=== PATIENT | male | born 1985 | race African-American/Black ===

== ENCOUNTER 2019-08-29 00:50 | Emergency (ER) | payer MEDICAID, OTHER ==
[~2019-08-29] VITALS: Ht 180.3 cm; Wt 65.8 kg
[~2019-08-29 00:50] MED LIST: CIPROFLOXACIN500 M2 ORAL; DOXYCYCLINE MO100 MG ORAL; PHENAZOPYRIDIN100 MG ORAL
--- NOTE | 2019-08-29 00:59 | NUR ---
ED Nurse Note: pt presents to ED with a lac to his R hand. THe lac is located in his palm below the ring finger. pt states that he was holding a can of queso when he tripped and the jar broke, lacerating his hand. pt reports he was drinking a little bit of alcohol. the lac is about 2 cm long and actively bleeding.
[2019-08-29] MEDS ORDERED: Tetanus/Diptheria/Pertussis IM ONE (01:00)
[2019-08-29] MEDS ORDERED: Lidocaine 1% 10mg/ml/EPI 0.01mg/ml 30ml INJ ONE (01:00)
[2019-08-29 01:01] VITALS: BP 135/100
--- NOTE | 2019-08-29 01:03 | Emergency Room Report ---
History of Present Illness General Chief Complaint: Laceration Source: Patient Present Illness HPI Patient presents with reports of a cut to the right hand Reports that he was carrying a jar And slipped in the rain and as he fell he lacerated his right hand Pain is 10 out of 10 localized to the lacerated area denies any wrist pain denies any elbow pain Patient feels that his last tetanus shot was over 5 to 10 years ago Allergies: Coded Allergies: No Known Allergies (Unverified , 07/21/14) Patient History Past Medical History: see triage record Reviewed Nursing Documentation: PMH: Agreed; PSxH: Agreed Nursing Documentation-PMH Past Medical History: No Stated History Review of Systems All Other Systems: negative except mentioned in HPI Physical Exam Vital Signs Date Time Temp Pulse Resp B/P (MAP) Pulse Ox O2 Delivery O2 Flow Rate FiO2 08/29/19 00:53 98.1 86 18 135/100 (112) 96 Room Air Sp02 EP Interpretation: reviewed, normal General Appearance: well appearing, no apparent distress Head: normocephalic, atraumatic Eyes: bilateral eye PERRL, bilateral eye EOMI ENT: EOM grossly intact Neck: supple Respiratory: lungs clear, no retraction Cardiovascular #1: regular rate, rhythm Gastrointestinal: non tender Musculoskeletal: other - Approximately 3 cm laceration starting at the web of the fourth and fifth finger comes down on the palmar aspect towards the wrist total length 3 cm patient able to fully flex and extend the digits Neurologic: alert, oriented x3 Skin: other - As above Lymphatic: no adenopathy Procedures Laceration/Wound Repair Laceration/Wound Repair : Consent: Verbal Wound Location: upper extremity Wound's Depth, Shape: irregular Wound Length (cm): 3 Wound Explored: clean Irrigated w/ Saline (ccs): 200 Betadine Prep?: Yes Anesthesia: Lidocaine w/ Epi Volume Anesthetic (ccs): 4 Wound Debrided: minimal Wound Repaired With: sutures Suture Size/Type: 5:0 Number of Sutures: 8 Layer Closure?: No Sterile Dressing Applied?: Yes Splint Applied?: No Patient Tolerated: Well Complications: None Progress This was a complex laceration requiring suturing into the web of the fingers also somewhat of a jagged presentation, the area did approximate well, using 8 sutures Medical Decision Making Diagnostic Impression: Primary Impression: Laceration ER Course Patient has what is considered a complex laceration repair Tolerated the procedure well was provided with oral antibiotics and we placed on antibiotics for home as well Last Vital Signs Date Time Temp Pulse Resp B/P (MAP) Pulse Ox O2 Delivery O2 Flow Rate FiO2 08/29/19 00:53 98.1 86 18 135/100 (112) 96 Room Air Status: improved Disposition: HOME, SELF-CARE Condition: Improved Scripts Cephalexin* (KEFLEX*) 500 Mg Capsule 500 MG ORAL EVERY 6 HOURS for 7 Days, CAP Prov: Radha Garcia DO 08/29/19 Additional Instructions: Patient is provided with the discharge instructions notified to follow up with primary doctor in the next 2-3 days otherwise return to the er with any worsening symptoms. Please note that this report is being documented using [employer] technology. This can lead to erroneous entry secondary to incorrect interpretation by the dictating instrument. Radha Garcia DO Aug 29, 2019 01:03
--- NOTE | 2019-08-29 01:34 | NUR ---
ED Nurse Note: ERMD at pt bedside repairing lac. pt tolerating procedure well
[2019-08-29] MEDS ORDERED: Neosporin Oint Ud Pkt TOPIC ONE (01:45)
[2019-08-29] MEDS ORDERED: Cephalexin 500mg cap ORAL ONE (01:45)
[2019-08-29] MEDS ORDERED: CEPHALEXIN500 MG ORAL (01:51)
[2019-08-29 02:20] VITALS: BP 135/100
--- NOTE | 2019-08-29 02:20 | NUR ---
ER DISCHARGE NOTE: Patient is cleared to be discharged per ERMD, pt is aox4, on room air, with stable vital signs. pt was given dc and presciption instructions, pt was able to verbalize understanding, pt id band removed without complications. pt is able to ambulate with steady gait. pt took all belongings.
== END 2019-08-29 02:20 | disposition home or self-care (01) ==
LOC: EMR 01:13
DX: S61.216A Laceration without foreign body of right little finger without damage to nail, initial encounter (principal); S61.214A Laceration without foreign body of right ring finger without damage to nail, initial encounter; W25.XXXA Contact with sharp glass, initial encounter; Y92.9 Unspecified place or not applicable; Z23 Encounter for immunization
CPT/HCPCS: 12002; 90471; 90715; Z7502; 99283

== ENCOUNTER 2019-10-24 20:36 | Emergency (ER) | payer OTHER ==
[~2019-10-24] VITALS: Ht 180.3 cm; Wt 65.8 kg
[~2019-10-24 20:36] MED LIST changes: +CEPHALEXIN500 MG ORAL
[2019-10-24 21:49] VITALS: BP 120/78
--- NOTE | 2019-10-24 21:50 | NUR ---
ED Nurse Note: Patient walked in to ER due to sutures removal. AAO x4, VSS at this time.
--- NOTE | 2019-10-24 21:51 | Emergency Room Report ---
History of Present Illness General Chief Complaint: Wound Recheck/Suture Removal Source: Patient Present Illness HPI Is a 31-year-old male who is right-hand dominant. He presents with chief complaint of suture removal. He sustained laceration to his right hand in August. He was sutured here. Never follow-up for have it removed. He decided come here now. No pain. No fever. No redness. No drainage. No other complaint. Allergies: Coded Allergies: No Known Allergies (Unverified , 07/21/14) Patient History Past Medical History: see triage record, old chart reviewed Past Surgical History: none Pertinent Family History: none Social History: Reports: smoking Immunizations: other Reviewed Nursing Documentation: PMH: Agreed; PSxH: Agreed Nursing Documentation-PMH Past Medical History: No Stated History Review of Systems Eye: Denies: eye pain, blurred vision ENT: Denies: ear pain, nose congestion, throat swelling Respiratory: Denies: cough, shortness of breath Cardiovascular: Denies: chest pain, palpitations Gastrointestinal: Denies: abdominal pain, diarrhea, nausea, vomiting Musculoskeletal: Denies: back pain, joint pain Skin: Denies: rash Neurological: Denies: headache, numbness Endocrine: Denies: increased thirst, increased urine Hematologic/Lymphatic: Denies: easy bruising All Other Systems: negative except mentioned in HPI Physical Exam Vital Signs Date Time Temp Pulse Resp B/P (MAP) Pulse Ox O2 Delivery O2 Flow Rate FiO2 10/24/19 20:50 98.1 67 16 120/78 (92) 96 Room Air Vitals normal Sp02 EP Interpretation: reviewed, normal General Appearance: well appearing, no apparent distress, alert Head: normocephalic, atraumatic Eyes: bilateral eye PERRL, bilateral eye EOMI ENT: hearing grossly normal, normal pharynx Neck: full range of motion, supple, no meningismus Respiratory: chest non-tender, lungs clear, normal breath sounds Cardiovascular #1: regular rate, rhythm, no murmur Gastrointestinal: normal bowel sounds, non tender, no mass, no organomegaly, no bruit, non-distended Musculoskeletal: back normal, normal range of motion, gait/station normal, other - Right hand: On the palmar surface there is a well-healed laceration extended from the fifth webspace to the proximal palm. No evidence of infection. Well-healed. Psychiatric: mood/affect normal Procedures Additional Procedure Procedure Narrative Procedure: Suture removal Indication: Laceration repaired Description: I cleaned the area with alcohol pad. I remove the suture with a small scissor. Patient tolerated procedure without any problem. No complication. Medical Decision Making Diagnostic Impression: Primary Impression: Encounter for removal of sutures ER Course Here for suture removal. No evidence of any infection or foreign body. Last Vital Signs Date Time Temp Pulse Resp B/P (MAP) Pulse Ox O2 Delivery O2 Flow Rate FiO2 10/24/19 20:50 98.1 67 16 120/78 (92) 96 Room Air Status: improved Disposition: HOME, SELF-CARE Condition: Stable Additional Instructions: Follow-up with your doctor in 7 days as needed. Return if worse. Ritchie Remy MD Oct 24, 2019 21:51
[2019-10-24 21:53] VITALS: BP 120/78
--- NOTE | 2019-10-24 21:54 | NUR ---
ED Nurse Note: Pt cleared by health care Provider for discharge. DC instructions/prescription was given and explained to pt and verbalized understanding of teachings. All medical deviecs such as ID band removed. Pt is AAO x4, ambulatory and left with all personal belongings.
== END 2019-10-24 21:50 | disposition home or self-care (01) ==
LOC: EMR 21:50
DX: Z48.02 Encounter for removal of sutures (principal); F17.200 Nicotine dependence, unspecified, uncomplicated
CPT/HCPCS: 99281